=== PATIENT | male | born 1990 | race Two or more races ===

== ENCOUNTER 2024-11-01 13:53 | Emergency (ER) | payer OTHER ==
[~2024-11-01] VITALS: Ht 165.1 cm; Wt 68.4 kg
[2024-11-01 15:00] LABS: Basophils # (auto) 0.1 10 ^3/uL (0-0.2); Basophils % (auto) 0.8 % (0.0-2.0); Eosinophils # (auto) 0.1 10 ^3/uL (0-0.8); Eosinophils % (auto) 0.8 % (0.0-7.0); Hematocrit 44.1 % (41.0-53.0); Hemoglobin 15.1 g/dL (13.5-17.5); Lymphocytes # (auto) 2.3 10 ^3/uL (0.4-5.4); Lymphocytes % (auto) 32.3 % (10.0-50.0); Mean Corpuscular Hemoglobin 31.4 pg (28.0-32.0); Mean Corpuscular Hgb Conc. 34.3 g/dL (32.0-36.0); Mean Corpuscular Volume 91.5 fL (80.0-100.0); Monocytes # (auto) 0.6 10 ^3/uL (0-1.3); Monocytes % (auto) 8.5 % (0.0-12.0); Neutrophils # (auto) 4.1 10 ^3/uL (1.6-8.6); Neutrophils % (auto) 57.6 % (37.0-80.0); Nucleated Red Blood Cells % 0.2 %; Platelet Count (auto) 186 10^3/uL (140-450); Red Blood Cells 4.82 10^6/uL (4.5-5.90); Red Cell Distribution Width 12.9 % (11.8-14.3); White Blood Cell 7.1 10^3/uL (4.4-10.8)
[2024-11-01 15:09] LABS: Anion Gap 5 (5-15); Carbon Dioxide 27 mmol/L (20-31); Potassium 4.6 mmol/L (3.5-5.1); Sodium 142 mmol/L (136-145)
[2024-11-01 15:10] LABS: Calcium 9.6 mg/dL (8.7-10.4)
[2024-11-01] MEDS: KETOROLAC TROMETH 30 MG/ML 1ML VIAL IV ONE (15:11)
[2024-11-01] MEDS: SODIUM CHLORIDE 0.9% 1,000 ML IV ONE (15:11)
--- NOTE | 2024-11-01 15:13 | DVH ---
CT ABDOMEN AND PELVIS WITHOUT CONTRAST CLINICAL HISTORY: right renal colic TECHNIQUE: Multiple contiguous axial images of the abdomen and pelvis without intravenous contrast. The images were reformatted degenerate coronal and sagittal reconstructions. All CT scans at this medical facility are performed using dose modulation techniques as appropriate t o a performed exam including the following:Automated exposure control was utilized; adjustment of the MA and/or KV according to patient size; and use of iterative reconstruction technique. Radiation Dose Information: CT Dose: CTDI volume is 7.7 mGy. Dose-length product is 433 mGy*cm Comparison: None FINDINGS: Evaluation of the abdomen and pelvis is limited without intravenous contrast. There are several small sub 5 mm calculi in the lower pole of the right kidney. There is no left tiffani l calculus. There is no hydronephrosis. There is no evidence of a ureteral calculus or hydroureter. Gallbladder is contracted without evidence gallstones. The liver, pancreas, adrenal glands, and s pleen appear within normal limits. There is no gross evidence of abdominal lymphadenopathy. There is no free fluid or free air. The stomach grossly appears unremarkable. The small and large bowel loops demonstrate normal caliber . A normal-appearing appendix is seen in the right lower quadrant abdomen. The abdominal aorta and IVC appear within normal limits. The bladder appears unremarkable for the degree of distention. There is no evidence of a bladder calc ulus. Pelvic organ appears within normal limits. There is no gross evidence of a pelvic mass. There is no free fluid collection. Lung bases are clear. There is no acute osseous abnormality. IMPRESSION: 1. Several small sub 5 mm nonobstructive right lower pole renal calculi. HS:Y
[2024-11-01 15:15] LABS: BUN/Creatinine Ratio 13.2 (10.0-20.0); Blood Urea Nitrogen 17 mg/dL (9-23)
[2024-11-01 15:16] LABS: Chloride 110 mmol/L (98-107); Glucose 70 mg/dL (74-106)
--- NOTE | 2024-11-01 15:48 | ED.PDOC ---
GI ASSESSMENT HPI Comments 34y M who presents to the ED for chief complaint of abdominal pain. Pt states he has been having RUQ abdominal pain since earlier this AM. Pt states the pain is sharp, constant, with pain radiating to the R flank with no associated exacerbating or relieving factors. Pt has no associated symptoms but denies any associated symptoms. Pt otherwise has stable vitals in the ED. Pt denies any other symptoms at this time. Chief Complaint: Abdominal Pain Time Seen by MD: 15:44 Primary Care Provider: unknown Reviewed Notes: Medications Allergies: Coded Allergies: NO KNOWN ALLERGIES (Unverified , 11/01/24) Information Source: Patient Mode of Arrival: Ambulatory Brought in by: self Past Medical History PAST MEDICAL HISTORY: Denies Surgical History: Denies all surgeries Family History Family History: Unknown Social History Smoker: Non-Smoker Alcohol: Denies ETOH Use Drugs: Denies Drug Use Lives In: Home Constitutional: denies: chills, diaphoresis, fatigue, fever, malaise, sweats, weakness, others EENTM: denies: blurred vision, double vision, ear bleeding, ear discharge, ear drainage, ear pain, ear ringing, eye pain, eye redness, hearing loss, mouth pain, mouth swelling, nasal discharge, nose bleeding, nose congestion, nose pain, photophobia, tearing, throat pain, throat swelling, voice changes, others Respiratory: denies: cough, hemoptysis, orthopnea, SOB at rest, shortness of breath, SOB with excertion, stridor, wheezing, others Cardiovascular: denies: chest pain, dizzy spells, diaphoresis, Dyspnea on exertion, edema, irregular heart beat, left arm pain, lightheadedness, palpitations, PND, syncope, others Gastrointestinal: reports: abdominal pain; denies: abdomen distended, blood streaked bowels, constipated, diarrhea, dysphagia, difficulty swallowing, hematemesis, melena, nausea, poor appetite, poor fluid intake, rectal bleeding, rectal pain, vomiting, others Genitourinary: reports: flank pain; denies: burning, dysuria, frequency, hematuria, incontinence, penile discharge, penile sore, pain, testicle pain, testicle swelling, urgency, others Neurological: denies: dizziness, fainting, headache, left sided numbness, left sided weakness, numbness, paresthesia, pre-existing deficit, right sided numbness, right sided weakness, seizure, speech problems, tingling, tremors, weakness, others Musculoskeletal: denies: back pain, gout, joint pain, joint swelling, muscle pain, muscle stiffness, neck pain, others Integumetry: denies: bruises, change in color, change in hair/nails, dryness, laceration, lesions, lumps, rash, wounds, others Allergic/Immunocompromised: denies: Difficulty Healing, Frequent Infections, Hives, Itching, others Hematologic/Lymphatic: denies: anemia, blood clots, easy bleeding, easy brui sing, swollen glands, others Endocrine: denies: excessive hunger, excessive sweating, excessive thirst, ex cessive urination, flushing, intolerance to cold, intolerance to heat, unexplained weight gain, unexplained weight loss, others Psychiatric: denies: anxiety, bipolar disorder, depression, hopeless, panic disorder, schizophrenia, sleepless, suicidal, others All Other Systems: Reviewed and Negative Physical Exam General Appearance: No Apparent Distress, Normal HEENT: Normal ENT Inspection, Pharynx Normal, TMs Normal Neck: Full Range of Motion, Non-Tender, Normal, Normal Inspection Respiratory: Chest Non-Tender, Lungs Clear, No Accessory Muscle Use, No Respiratory Distress, Normal Breath Sounds Cardiovascular: No Edema, No JVD, No Murmur, No Gallop, Normal Peripheral Pulses, Regular Rate/Rhythm Breast Exam: Deferred Gastrointestinal: No Organomegaly, Non Tender, No Pulsatile Mass, Normal Bowel Sounds, Soft Genitalia: Deferred Pelvic: Deferred Rectal: Deferred Extremities: No calf tenderness, Normal capillary refill, Normal inspection, Normal range of motion, Non-tender, No pedal edema Musculoskeletal : Apperance: Normal Neurologic: Alert, group insurance specialist II-XII nml as Tested, No Motor Deficits, Normal Affect, Normal Mood, No Sensory Deficits Cerebellar Function: Normal Reflexes: Normal Skin: Dry, Normal Color, Warm Lymphatic: No Adenopathy Was a procedure done? Was a procedure done?: No GI differential Dx Differential Diagnosis: Cholangitis, Cholecystitis, Gastritis/PUD, Gastroenteritis, Hernia, Hepatitis, Urinary Obstruction, UTI, Dehydration, Food Poisoning, Bacterial, Viral, Mass, Stress Ulcer, Kidney Stone, Other (shingles) X-Ray, Labs, Meds, VS Vital Signs Date Time Temp Pulse Resp B/P (MAP) Pulse Ox O2 Delivery O2 Flow Rate FiO2 11/01/24 14:11 98.6 110 22 134/80 (98) 100 Lab Test 11/01/24 15:05 11/01/24 14:45 Range/Units Urine Color Light-yellow Yellow Urine Clarity Clear Clear Urine pH 6.5 5.0-9.0 Urine Specific [place] 1.019 1.001-1.035 Urine Protein Negative Negative Urine Ketones Trace Negative Urine Blood 2+ H Negative /uL Urine Nitrite Negative Negative Urine Bilirubin Negative Negative Urine Urobilinogen Normal Negative mg/dL Urine Leukocyte Esterase Negative Negative /uL Urine RBC 26 0 - 3 /hpf Urine WBC 1 0 - 3 /hpf Urine Squamous Epithelial Cells None seen <5 /hpf Urine Bacteria None seen None Seen /hpf Urine Mucus Few None Seen Urine Glucose Normal Normal mg/dL White Blood Count 7.1 4.4-10.8 10^3/uL Red Blood Count 4.82 4.5-5.90 10^6/uL Hemoglobin 15.1 13.5-17.5 g/dL Hematocrit 44.1 41.0-53.0 % Mean Corpuscular Volume 91.5 80.0-100.0 fL Mean Corpuscular Hemoglobin 31.4 28.0-32.0 pg Mean Corpuscular Hemoglobin Concent 34.3 32.0-36.0 g/dL Red Cell Distribution Width 12.9 11.8-14.3 % Platelet Count 186 140-450 10^3/uL Mean Platelet Volume 10.3 6.9-10.8 fL Neutrophils (%) (Auto) 57.6 37.0-80.0 % Lymphocytes (%) (Auto) 32.3 10.0-50.0 % Monocytes (%) (Auto) 8.5 0.0-12.0 % Eosinophils (%) (Auto) 0.8 0.0-7.0 % Basophils (%) (Auto) 0.8 0.0-2.0 % Neutrophils # (Auto) 4.1 1.6-8.6 10 ^3/uL Lymphocytes # (Auto) 2.3 0.4-5.4 10 ^3/uL Monocytes # (Auto) 0.6 0-1.3 10 ^3/uL Eosinophils # (Auto) 0.1 0-0.8 10 ^3/uL Basophils # (Auto) 0.1 0-0.2 10 ^3/uL Nucleated Red Blood Cells 0.2 % Sodium Level 142 136-145 mmol/L Potassium Level 4.6 3.5-5.1 mmol/L Chloride Level 110 H 98-107 mmol/L Carbon Dioxide Level 27 20-31 mmol/L Anion Gap 5 5-15 Blood Urea Nitrogen 17 9-23 mg/dL Creatinine 1.29 0.700-1.30 mg/dL Glomerular Filtration Rate Calc 76 >90 mL/min BUN/Creatinine Ratio 13.2 10.0-20.0 Serum Glucose 70 L 74-106 mg/dL Calcium Level 9.6 8.7-10.4 mg/dL Current Medications Medications (Trade) Dose Ordered Sig/Olga Route Start Time Stop Time Status Last Admin Sodium Chloride 1,000 ml @ 1,000 mls/hr Q1H ONCE IV 11/01/24 14:30 11/01/24 15:29 DC 11/01/24 15:11 Ketorolac Tromethamine (Toradol Injection) 30 mg ONCE ONCE IV 11/01/24 14:30 11/01/24 14:31 DC 11/01/24 15:11 [place] [id number] Ph: [phone] DIAGNOSTIC IMAGING Diagnostic Imaging Report : [id number] Signed PATIENT: ANA CRISTINA ALEGRIA ACCT: [id number] UNIT: [id number] : 1990 LOC: ER ROOM / BED: / AGE / SEX: 34 / M ADM STATUS: REG ER SERVICE [id number] ORDERING PHYSICIAN: LESIA JIANG MD PROCEDURE(s): ABPL - CT AB PEL WO CON-NO ORAL OR IV REASON: right renal colic ORDER NUMBER(s): [id number], ACCESSION NUMBER(s): [id number] CT ABDOMEN AND PELVIS WITHOUT CONTRAST CLINICAL HISTORY: right renal colic TECHNIQUE: Multiple contiguous axial images of the abdomen and pelvis without intravenous contrast. The images were reformatted degenerate coronal and sagittal reconstructions. All CT scans at this medical facility are performed using dose modulation techniques as appropriate to a performed exam including the following:Automated exposure control was utilized; adjustment of the MA and/or KV according to patient size; and use of iterative reconstruction technique. Radiation Dose Information: CT Dose: CTDI volume is 7.7 mGy. Dose-length product is 433 mGy*cm Comparison: None FINDINGS: Evaluation of the abdomen and pelvis is limited without intravenous contrast. There are several small sub 5 mm calculi in the lower pole of the right kidney. There is no left renal calculus. There is no hydronephrosis. There is no evidence of a ureteral calculus or hydroureter. Gallbladder is contracted without evidence gallstones. The liver, pancreas, adrenal glands, and spleen appear within normal limits. There is no gross evidence of abdominal lymphadenopathy. There is no free fluid or free air. The stomach grossly appears unremarkable. The small and large bowel loops demonstrate normal caliber. A normal-appearing appendix is seen in the right lower quadrant abdomen. The abdominal aorta and IVC appear within normal limits. The bladder appears unremarkable for the degree of distention. There is no ev idence of a bladder calculus. Pelvic organ appears within normal limits. There is no gross evidence of a pelvic mass. There is no free fluid collection. Lung bases are clear. There is no acute osseous abnormality. IMPRESSION: 1. Several small sub 5 mm nonobstructive right lower pole renal calculi. HS:Y ATED BY: DAMIEN SULLIVAN MD DICTATED DATE/TIME: 11/01/241511 SIGNED BY: DAMIEN SULLIVAN MD SIGNED DATE/TIME: 11/01/241511 CC: Time of 1ST Reevaluation: 16:15 Reevaluation 1ST: Unchanged Time of 2ND Reevaluation: 16:39 Reevaluation 2ND: Improved Patient Education/Counseling: Diagnosis, Treatment, Prognosis, Need For Follow Up Family Education/Counseling: No Family Present Additional Information - I reviewed the following notes from patient's past medical encounters: - The following tests were ordered, and results were reviewed by me: (Labs, X- Ray, EKG): CT abdomen and pelvis without contrast, CBC, BMP, UA - Additional information was gathered from interviewing the following independent Historian: (Family, Other Providers, EMT): none - I reviewed and agreed with the following test results read by other provider: (CT): radiologist - I discussed treatments and results with medical personnel pt has small stones within the kidney but no ureteral stones. no uti, but hematuria. he may have passed a stone, but does not have evidence of any in the ureters now. he does not have re nal masses, nor pyelonephritis. he does not have singles. he is stable for discharge Departure 1 Departure Time of Disposition: 16:41 Impression: Primary Impression: Right flank pain Additional Impression: Hematuria Qualified Codes: R31.29 - Other microscopic hematuria Disposition: HOME / SELF CARE / HOMELESS Condition: Good e-Prescriptions Ibuprofen Micronized (MOTRIN TABLET) 600 Mg Tb 600 MG PO TID PRN, #40 TAB *Black box warning-NSAIDS can increase risk of PA & hypertension, GI irritation, ulceration, bleed, perferation. Do not use post cardiac surgery. Use short duration/lowest effective dose. Prov: LESIA JIANG MD 11/01/24 Discharged With: Self Critical Care Note Critical Care Time?: No Stability Stability form required: No Heart Score Heart Score: Heart Score Response (Comments) Value History N/A 0 EKG N/A 0 Age N/A 0 Risk Factors N/A 0 Troponin N/A 0 Total 0 I personally scribed for LESIA JIANG MD ([email or web address]) on 11/01/24 at 15:48. Electronically submitted by Nando Angulo ([email or web address]). LESIA JIANG MD Nov 01, 2024 15:48
[2024-11-01 16:12] LABS: Urine Bacteria None Seen /hpf (None Seen)
[2024-11-01 16:25] LABS: Urine Blood 2+ /uL (Negative); Urine Clarity Clear (Clear); Urine Color Light-Yellow (Yellow); Urine Mucus FEW (None Seen); Urine Protein, UAD Negative (Negative); Urine Specific Gravity 1.019 (1.001-1.035); Urine Urobilinogen Normal (Negative); Urine WBC 1 /hpf (0 - 3); Urine pH 6.5 (5.0-9.0)
[2024-11-01] MEDS ORDERED: IBU600T PO (16:42)
[2024-11-01] MEDS: HYDROcodone-ACET 5/325MG TAB PO ONE (17:01)
[2024-11-01 18:41] VITALS: BP 142/79; PULSE 60; RESP 18; TEMP 98.3; O2SAT 100
== END 2024-11-01 19:09 | disposition home or self-care (01) ==
LOC: EDBD 13:53 → ER 13:53
DX: R31.9 Hematuria, unspecified (principal); R10.11 Right upper quadrant pain
CPT/HCPCS: 36415; 74176; 80048; 81001; 85025; 96361; 96374; 99285; J1885; J7030